=== PATIENT | male | born 1980 | race Two or more races ===

== ENCOUNTER 2017-11-13 13:09 | Emergency (ER) | payer SELFPAY ==
[~2017-11-13] VITALS: Ht 172.7 cm; Wt 100.0 kg
[2017-11-13] MEDS ORDERED: LORazepam 2 MG/ML, 1ML ONE ×2 (13:36→15:53)
[2017-11-13] MEDS: LORazepam 2 MG/ML, 1ML IVPush PRN ×3 (13:38→16:02)
[2017-11-13] MEDS ORDERED: PLEASE ENTER ALLERGIES MC SCH (14:00)
[2017-11-13] MEDS ORDERED: SODIUM CHLORIDE FLUSH 10ML SYR IVF ONE (14:00)
[2017-11-13] MEDS ORDERED: SODIUM CHLORIDE 0.9% 1,000ML IVBOLUS ONE ×2 (14:00→16:00)
[2017-11-13] MEDS ORDERED: CLON0.1T PO (14:42)
[2017-11-13] MEDS ORDERED: FURO40TA6 PO (14:42)
[2017-11-13] MEDS ORDERED: ATOR-2 PO (14:42)
[2017-11-13] MEDS ORDERED: TAMS0.4C2 PO (14:42)
[2017-11-13] MEDS ORDERED: AMLO10TA2 PO (14:42)
[2017-11-13] MEDS ORDERED: FINA5TAB4 PO (14:42)
[2017-11-13] MEDS ORDERED: ASPI500T4 PO (14:42)
[2017-11-13] MEDS ORDERED: POTA99TA24 PO (14:42)
[2017-11-13] MEDS ORDERED: LISI40TA PO (14:42)
[2017-11-13] MEDS ORDERED: LINA5TAB PO (14:42)
[2017-11-13] MEDS ORDERED: METO200T47 PO (14:42)
[2017-11-13 16:12] LABS: MEAN CORPUSCULAR VOLUME 75.1 fL (81-97); MEAN PLATELET VOLUME 7.9 fL (7.4-10.4); PLATELET COUNT 297 x10^3/uL (130-400); RED BLOOD COUNT 4.64 x10^6/uL (4.38-5.82); RED CELL DISTRIBUTION WIDTH 20.8 % (9.4-14.8)
[2017-11-13 16:19] LABS: ALBUMIN 3.5 g/dL (3.4-5.0); ANION GAP 12 mmol/L (5-15); CALCIUM 8.1 mg/dL (8.5-10.1); CHLORIDE 100 mmol/L (98-107); CREATININE 0.64 mg/dL (0.7-1.3)
[2017-11-13 16:29] LABS: MD YES
[2017-11-13 16:31] LABS: BAND#(MANUAL) 0.13 x10^3/uL; BANDS%(MANUAL) 1 % (0-7); BASOS#(MANUAL) 0.13 x10^3/uL (0-0.1); BASOS% (MANUAL) 1 % (0-1); LYMPH#(MANUAL) 1.34 x10^3/uL (1-3.4); LYMPHS% (MANUAL) 10 % (22-44); MONOS% (MANUAL) 3 % (2-9)
[2017-11-13 16:32] LABS: ANISOCYTOSIS 1+; HYPOCHROMIA 1+; MICROCYTOSIS 1+; SEGS% (MANUAL) 85 % (42-75)
[2017-11-13 16:34] LABS: <PLATELET ESTIMATE> ADEQUATE; <PLT MORPHOLOGY> NORMAL PLT MORPH; OVALOCYTES 1+
[2017-11-13 17:19] VITALS: BP 174/102
== END 2017-11-13 18:18 | disposition home or self-care (01) ==
LOC: ED 15:24
DX: F10.239 Alcohol dependence with withdrawal, unspecified (principal)
CPT/HCPCS: 36415; 80048; 82040; 85025; 96374; 96376; 99284; J2060; J7030